=== PATIENT | female | born 1980 | race Asian ===

== ENCOUNTER 2016-11-13 10:08 | Outpatient (CLI) | payer BC | END 2016-11-13 10:09 | disposition home or self-care (01) | DX: Z53.9 Procedure and treatment not carried out, unspecified reason (principal) ==

== ENCOUNTER 2022-05-01 16:01 | Outpatient (CLI) | payer MEDICAID ==
--- NOTE | 2022-05-01 17:34 | XRAY Report ---
PROCEDURE: Chest 2 View X-Ray INDICATIONS: CHEST PAIN, UNSPECIFIED TECHNIQUE: 2 view(s) of the chest. COMPARISON: None. FINDINGS: Surgical changes and devices: None. Lungs and pleura: No pleural effusions or pneumothorax. Lungs are clear. Mediastinum: Mediastinal contours are normal. Heart size is normal. Bones and chest wall: No suspicious bony abnormalities. Soft tissues appear unremarkable. IMPRESSION: Chest without acute cardiopulmonary abnormalities or focal airspace disease. Reviewed by: Alejandro Lopez MD on 05/01/2022 5:32 PM PDT Approved by: Alejandro Lopez MD on 05/01/2022 5:32 PM PDT Station ID: [id number]
== END 2022-05-01 16:02 | disposition home or self-care (01) ==
LOC: DI 16:01
PROVIDERS: ATTEND Nurse Practitioner
DX: R07.9 Chest pain, unspecified (principal)